=== PATIENT | male | born 1990 | race Caucasian/White ===

== ENCOUNTER 2017-01-02 16:08 | Emergency (ER) | payer SELFPAY ==
[~2017-01-02] VITALS: Ht 182.9 cm; Wt 65.8 kg
[2017-01-02 16:33] VITALS: BP 114/84
[2017-01-02] MEDS ORDERED: traMADol HCL 50 MG TAB PO ONE (16:45)
[2017-01-02] MEDS ORDERED: cefTRIAXone SOD 1,000 MG VL IM ONE (16:45)
== END 2017-01-02 17:25 | disposition home or self-care (01) ==
LOC: ER 16:16
DX: K02.9 Dental caries, unspecified (principal); F17.210 Nicotine dependence, cigarettes, uncomplicated; F12.10 Cannabis abuse, uncomplicated
CPT/HCPCS: 96372; 99283; J0696